=== PATIENT | male | born 1945 | race African-American/Black ===

== ENCOUNTER → 2018-03-25 | Outpatient (CLI) | payer OTHER ==
[~2018-03-25] VITALS: Ht 170.2 cm; Wt 59.0 kg
[~2018-03-25] MED LIST: ASPIR 8181 M1 PO; HYDRALAZINE 2525 MG; HYDROCHLOROTHIA25 M2 PO; NORVASC10 MG PO
[2018-03-25 10:52] VITALS: BP 165/110
== END ==
LOC: SEN 10:41
DX: M25.561 Pain in right knee (principal); M25.562 Pain in left knee; M25.572 Pain in left ankle and joints of left foot; M25.571 Pain in right ankle and joints of right foot; G89.29 Other chronic pain; I10 Essential (primary) hypertension; M19.90 Unspecified osteoarthritis, unspecified site; Z87.891 Personal history of nicotine dependence; Z79.899 Other long term (current) drug therapy